=== PATIENT | female | born 1980 | race African-American/Black ===

== ENCOUNTER 2016-12-31 09:40 | Emergency (ER) | payer MEDICAID ==
[~2016-12-31] VITALS: Ht 160 cm; Wt 81.4 kg
[2016-12-31 09:44] VITALS: BP 127/74
== END 2016-12-31 11:10 | disposition home or self-care (01) ==
LOC: ED 10:50
DX: J00 Acute nasopharyngitis [common cold] (principal); R21 Rash and other nonspecific skin eruption; R05 Cough
CPT/HCPCS: 71020; 99284